=== PATIENT | female | born 1960 | race Caucasian/White ===

== ENCOUNTER 2019-03-29 19:14 | Emergency (ER) | payer OTHER ==
[~2019-03-29] VITALS: Ht 167.6 cm; Wt 81.8 kg
[2019-03-29 19:22] VITALS: BP 141/78; PULSE 80; RESP 18; Ht 167.6 cm; Wt 81.8 kg
[2019-03-29] MEDS ORDERED: ASPIRIN 81 MG TAB PO ONE (20:30)
--- NOTE | 2019-03-29 21:53 | ERD ---
ER Documentation Chief Complaint Chief Complaint C/O ON AND OFF NON RADIATING LT SIDED CP W/ PALPITATIONS X1 WEEK HPI 58-year-old female presents to the emergency room with chest pain for approximately 1 week. She states intermittently she has a fluttering in her chest and very dull pain in the last 1 to 2 seconds. This is usually exacerbated by eating salad, taking her magnesium tablets or eating garlic. She denies exertional symptoms. No diaphoresis or nausea associated with the symptoms. No fevers chills or cough. No calf swelling or pleuritic discomfort. No chest pain currently. ROS All systems reviewed and are negative except as per history of present illness. Allergies Allergies: Coded Allergies: No Known Allergy (Unverified , 03/29/19) PMhx/Soc Medical and Surgical Hx: pt denies Medical Hx, pt denies Surgical Hx Hx Alcohol Use: No Hx Substance Use: No Hx Tobacco Use: Yes Smoking Status: Former smoker FmHx Family History: No diabetes, No coronary disease Physical Exam Vitals Vital Signs Date Temp Pulse Resp B/P (MAP) Pulse Ox O2 O2 Flow FiO2 Time Delivery Rate 03/29/19 97.1 80 18 141/78 95 19:22 (99) Physical Exam General: Well developed, well nourished, no acute distress Head: Normocephalic, atraumatic. Eyes: Pupils equally reactive, EOM intact ENT: Moist mucous membranes Neck: Supple, no lymphadenopathy Respiratory: Lungs clear bilaterally, no distress Cardiovascular: RRR, no murmurs, rubs, or gallops Abdominal: Soft, non-tender, non-distended, no peritoneal signs : Deferred MSK: No edema, no unilateral swelling, 5/5 strength Neurologic: Alert and oriented, moving all extremities, normal speech, no focal weakness, no cerebellar signs Skin: No rash Psych: Normal mood Result Diagram: 03/29/19201903/29/192019 Results 24 hrs Laboratory Tests Test 03/29/19 20:20 White Blood Count 8.4 10^3/ul Red Blood Count 4.17 10^6/ul Hemoglobin 12.1 g/dl Hematocrit 38.4 % Mean Corpuscular Volume 92.1 fl Mean Corpuscular Hemoglobin 29.0 pg Mean Corpuscular Hemoglobin Concent 31.5 g/dl Red Cell Distribution Width 13.4 % Platelet Count 291 10^3/UL Mean Platelet Volume 9.0 fl Immature Granulocytes % 0.200 % Neutrophils % 49.3 % Lymphocytes % 37.0 % Monocytes % 9.9 % Eosinophils % 3.0 % Basophils % 0.6 % Nucleated Red Blood Cells % 0.0 /100WBC Immature Granulocytes # 0.020 10^3/ul Neutrophils # 4.1 10^3/ul Lymphocytes # 3.1 10^3/ul Monocytes # 0.8 10^3/ul Eosinophils # 0.3 10^3/ul Basophils # 0.1 10^3/ul Nucleated Red Blood Cells # 0.0 10^3/ul Sodium Level 139 mmol/L Potassium Level 4.0 mmol/L Chloride Level 103 mmol/L Carbon Dioxide Level 31 mmol/L Anion Gap 5 Blood Urea Nitrogen 22 mg/dl Creatinine 1.03 mg/dl Est Glomerular Filtrat Rate mL/min 55 mL/min Glucose Level 95 mg/dl Calcium Level 9.3 mg/dl Troponin I < 0.012 ng/ml Current Medications Medications Dose Sig/Katheryn Start Time Status Last (Trade) Ordered Route PRN Stop Time Admin Dose Reason Admin Aspirin 162 mg ONCE ONCE 03/29/19 DC 03/29/19 (Aspirin) PO 20:30 20:23 03/29/19 20:31 Procedures/MDM EKG, MONITORS, & DIAGNOSTIC IMAGING: EKG: I reviewed and interpreted a 12-lead EKG. Rhythm: Normal sinus rhythm ST Changes: No contiguous ST segment elevations T waves: No contiguous T wave inversions Impression: No evidence of acute cardiac ischemia Repeat EKG: EKG: I reviewed and interpreted a 12-lead EKG. Rhythm: Normal sinus rhythm ST Changes: No contiguous ST segment elevations T waves: No contiguous T wave inversions Impression: No evidence of acute cardiac ischemia Chest x-ray: I reviewed and interpreted a 1 view of the chest Mediastinum: No enlargement Cardiac silhouette: No cardiomegaly Airspace: Clear lung peters bilaterally without evidence of pneumothorax Bones: No evidence of fracture PROCEDURES: None LAB INTERPRETATION: * Negative troponin MEDICAL DECISION MAKING: The patient's history, physical exam and clinical presentation is atypical and unlikely related to acute coronary syndrome. The patient has no exertional symptoms. It is usually related to eating salad, garlic or taking magnesium which is odd. Consider possible stress and/or anxiety.. Based on the patient's clinical exam and history and risk factors, I have a much lower clinical concern for pulmonary embolism, acute aortic dissection, pneumothorax, pneumonia, cardiac tamponade HEART Score: 1 MACE Rate: Less than 1.7% Shared Decision Making: We had a conversation regarding risk stratification, MACE rate, and the risks, benefits, alternatives of disposition planning options. Disposition planning: Patient prefers single troponin discharge. ER COURSE: * Patient's troponin is negative. She is asymptomatic. * I discussed and recommended serial troponins in the emergency room setting with the patient would like to be discharged. She understands the risk benefits and alternatives. She has capacity. * Outpatient follow-up with primary care physician is certainly necessary. CONSULTATION: None DISPOSITION PLAN: The patient does not have an identifiable emergent medical condition that warrants inpatient hospitalization at this time. The patient is deemed safe for discharge with outpatient follow-up. We discussed follow up with the patient's primary care doctor within 24 to 48 hours as needed. We also discussed return to the emergency room for worsening symptoms or worsening condition. Outpatient referral: None required Discharge Medications: None required Departure Diagnosis: Primary Impression: Chest pain Chest pain type: unspecified Qualified Codes: R07.9 - Chest pain, unspecified Additional Impression: Palpitations Condition: Stable Patient Instructions: Chest Pain, Uncertain Cause Additional Instructions: Llame al doctor nombrado brooke (Referral Sources) MAANA y christian deon SUNIL PARA DENTRO DE DEON SEMANA. Dgale a la secretaria que nosotros le instruimos hacer esta sunil.Avise o llame si pineda condicin se empeora antes de la sunil. GEORGE SALAS MD Mar 29, 2019 21:53
== END 2019-03-29 22:10 | disposition home or self-care (01) ==
LOC: E/R 19:14
DX: R07.89 Other chest pain (principal); R00.2 Palpitations; Z87.891 Personal history of nicotine dependence
CPT/HCPCS: 36415; 71045; 80048; 84484; 85025; 93005; Z7502; Z7610